=== PATIENT | male | born 1990 | race Caucasian/White ===

== ENCOUNTER 2020-12-06 09:45 | Outpatient (CLI) | payer OTHER, SELFPAY ==
--- NOTE | ~2020-12-06 | MR_ITS ---
EXAMINATION: MR brain/brain stem wo con EXAM DATE: 12/06/2020 15:33 INDICATION: Intermittent right-sided headaches for years TECHNIQUE: Magnetic resonance imaging (MRI) of the brain/brain stem obtained without contrast. Scott al T1, axial diffusion, gradient echo (T2*), T1, T2, FLAIR sequences obtained. There is no prior st udy for comparison. FINDINGS: There are no areas of restricted diffusion to suggest acute infarction. There is no acute hemorrhage seen on the T2*, a hemosiderin sensitive sequence. No intraparenchymal brain mass. The ve ntricles are normal in size. There are no extra-axial collections. Flow voids are seen in the cereb ral arteries on the T2-weighted sequences consistent with their expected patency. The orbits are unr emarkable. Soft tissue is unremarkable. Mild mucoperiosteal thickening throughout the sinuses. No evidence of sinus air-fluid levels. IMPRESSION: 1. No acute intracranial findings. 2. Mild periosteal thickening. Reviewed, dictated and finalized at location B.
== END 2020-12-06 09:46 ==
PROVIDERS: PCP Internal Medicine; Visit Provider Internal Medicine
DX: R51.9 Headache, unspecified (principal)
CPT/HCPCS: 70551

== ENCOUNTER 2023-04-08 09:35 | Emergency (ER) | payer OTHER, SELFPAY ==
[2023-04-08 09:42] VITALS: BP 185/105; PULSE 74; RESP 20; TEMP 36.8; O2SAT 100
--- NOTE | 2023-04-08 09:42 | ED.GENADULT ---
HPI - General Adult General Chief complaint: Unspecified Stated complaint: High Blood Pressure Time Seen by Provider: 04/08/23 10:06 32-year-old male presents concern for high blood pressure. Reports he stayed home from work for the last 2 days because of a headache that he related to hypertension. Reports he was diagnosed with hypertension several years ago and was put on medication for it which he has not been taking for 1-2 years. He reports his current pain level is 1/10. He reports he is in between primary care providers. Source: patient Mode of arrival: ambulatory Limitations: no limitations Related Data Allergies Allergy/AdvReac Type Severity Reaction Status Date / Time No Known Allergies Allergy Verified 04/08/23 10:03 Review of Systems Review of Systems: CONSTITUTIONAL: Denies malaise, chills, sweats, or fever. EYES: Denies visual changes CARDIOVASCULAR: Denies chest pain, palpitations, or edema. RESPIRATORY: Denies cough or dyspnea. GASTROINTESTINAL: Denies abdominal pain, nausea, vomiting, diarrhea SKIN: Denies rash or itching. MUSCULOSKELETAL: Denies myalgia. NEUROLOGIC: Denies numbness, weakness, or headache. PSYCHIATRIC: Denies anxiety or depression. All systems reviewed & are unremarkable except as noted in HPI and below PMFSH Comments At time of signature, agree with nursing past medical, surgical, social and family history. There is no relevant family history pertinent to the presenting complaint Exam Narrative: GENERAL: Well-appearing, well-nourished, and in no acute distress. HEAD: Normocephalic, atraumatic. EYES: PERRLA, sclera clear, and EOMI. No nystagmus. ENT: Nares clear, turbinates pink, no rhinorrhea or epistaxis. Mucous membranes moist. TM pearly ramachandran with sharp light reflex bilaterally; no tragal tenderness. Oropharynx without erythema or lesions. Tonsils not enlarged and without exudate. NECK: Supple. No lymphadenopathy. No jugular venous distension, thyromegaly, or carotid bruits. Carotids were easily palpable bilaterally. CHEST: No respiratory distress. Clear to auscultation. No bony deformities, no asymmetry. Speaks in full sentences. HEART: Regular rate and rhythm. No murmur heard. Normal peripheral pulses. ABDOMEN: Soft, nontender, nondistended, normal active bowel sounds, no palpable masses. EXTREMITIES: Normal range of motion. No edema. Normal strength and sensation. SKIN: Warm, dry, no visible rash. NEURO: Alert and oriented x3. No focal deficits. Cranial nerves II through XII grossly intact PSYCH: Normal mood and affect Course Course Emergency Course: Discussed extensively with patient importance of taking high blood pressure medication consistently, discussed importance of finding a primary care provider, I will prescribe him short-term antihypertensive and advised him there will not be refills given at this urgent care. Patient is aware of diagnosis, understands and agrees to treatment plan. Anticipatory guidance given. Patient agrees to follow-up as directed and is aware of reasons to seek care at the emergency department. Portions of this record may have been created with voice recognition software Level of Care: Express Care Visit Vital Signs Vital signs: Vital Signs Temperature 98.3 F 04/08/23 09:42 Pulse Rate 74 04/08/23 09:42 Respiratory Rate 20 04/08/23 09:42 Blood Pressure 185/105 H 04/08/23 09:42 Pulse Oximetry 100 04/08/23 09:42 Oxygen Delivery Room Air 04/08/23 09:42 Temperature 98.3 F 04/08/23 09:42 Pulse Rate 74 04/08/23 09:42 Respiratory Rate 20 04/08/23 09:42 Blood Pressure 185/105 H 04/08/23 09:42 Pulse Oximetry 100 04/08/23 09:42 Oxygen Delivery Room Air 04/08/23 09:42 Reviewed. Medical Decision Making MDM Narrative Medical decision making narrative: Exam findings show no acute concerns or changes; patient is non-toxic appearing and is in no distress. Patient is appropriate for outpatient treatment and
== END 2023-04-08 10:30 | disposition home or self-care (01) ==
PROVIDERS: Emergency Provider Nurse Practitioner; PCP Physician Assistant Medical
DX: I10 Essential (primary) hypertension (principal)
CPT/HCPCS: 99213; G0463